=== PATIENT | female | born 1980 | race Caucasian/White ===

== ENCOUNTER 2024-03-03 19:04 | Emergency (ER) | payer OTHER ==
[2024-03-03 19:29] VITALS: BP 103/70; PULSE 90; RESP 15; TEMP 98.5; BMI 19.6
[2024-03-03] MEDS ORDERED: ACETAMINOPHEN 500 MG TABLET (FP) ONE (20:18)
[2024-03-03] MEDS: ACETAMINOPHEN 500 MG TABLET (FP) PO ONE (20:19)
== END 2024-03-03 20:23 | disposition home or self-care (01) ==
LOC: FER 19:04
DX: S62.646A Nondisplaced fracture of proximal phalanx of right little finger, initial encounter for closed fracture (principal); X50.1XXA Overexertion from prolonged static or awkward postures, initial encounter
CPT/HCPCS: 73140-TC-RT-FY; 99283-25